=== PATIENT | female | born 1990 | race Caucasian/White ===

== ENCOUNTER 2020-03-09 12:44 | Inpatient (IN) | payer OTHER ==
--- NOTE | 2020-03-09 13:24 | BHS.RME ---
2019 N Coronavirus Screen - COVID-19 Screening Questions Dx of COVID-19 or had a positive test in the last 4 weeks?: No Contact with known/suspected COVID patient in last 14 days?: No Any of these symptoms or contact with someone who has?: None Traveled domestically/internationally in the last 14 days?: No Screen score: 0 Screen result: Further Evaluation Substance Use & Tx History - Substance Use History Other Opiates/Synthetics Substance amount: percocet 10-325 8 tabs Frequency of use: Less than 3 times per week Substance route: Oral Date of Last Use: 03/08/20 (started age 25) Xanax Substance amount: 2mg 3 tabs Frequency of use: Less than 3 times per week Substance route: Oral Date of Last Use: 03/08/20 (started age 26) Nicotine Substance amount: 2-3 ciggs Frequency of use: Less than 3 times per week Substance route: Smoking Date of Last Use: 03/09/20 (started age 25) - Last Treatment Date of last treatment: 03/08/20 overdosed on combination of percocet and xanax given narcan yester Treatment type: Medical Where was last treatment: ER Physical/Psych/Mental Status - Behavior General Behavior: Increased activity (restlessness, agitation) Eye Contact: Normal - Cooperativeness Cooperativeness: Cooperative - Thinking Thought Processes: Tight, Logical, Goal Directed - Physical Health Problems Is patient presently having any pain?: No Does patient presently have any injuries (include location): No Does patient currently have a fever: No Is patient : No COWS - Scale Resting Pulse: 0= [place] 80 or Below Sweatin= No chills or Flushing Restless Observation: 0= Sits Still Pupil Size: 0= Normal to Room Light Bone or Joint Aches: 0= None Runny Nose/ Eye Tearin= None GI Upset > 30mins: 0= None Tremor Observation: 0= None Yawning Observation: 0= None Anxiety or Irritability: 0= None Goose Flesh Skin: 0=Smooth Skin COWS Score: 0 CIWA Nausea/Vomitin-No Nausea/No Vomiting Muscle Tremors: None Anxiety: 0-No Anxiety, at Ease Agitation: 0-Normal Activity Paroxysmal Sweats: No Perspiration Orientation: 0-Oriented Tacttile Disturbances: 0-None Auditory Disturbances: 0-None Visual Disturbances: 0-None Headache: 0-None Present CIWA-Ar Total Score: 0
--- NOTE | 2020-03-09 17:03 | HP ---
COWS - Scale Resting Pulse: 1= [place] 81-100 Sweatin= No chills or Flushing Restless Observation: 0= Sits Still Pupil Size: 0= Normal to Room Light Bone or Joint Aches: 0= None Runny Nose/ Eye Tearin= None GI Upset > 30mins: 0= None Tremor Observation: 2= Slight Tremor Visible Yawning Observation: 1= 1-2x During Session Anxiety or Irritability: 0= None Goose Flesh Skin: 0=Smooth Skin COWS Score: 4 CIWA Score Nausea/Vomitin-No Nausea/No Vomiting Muscle Tremors: None Anxiety: 0-No Anxiety, at Ease Agitation: 0-Normal Activity Paroxysmal Sweats: No Perspiration Orientation: 0-Oriented Tacttile Disturbances: 0-None Auditory Disturbances: 0-None Visual Disturbances: 0-None Headache: 0-None Present CIWA-Ar Total Score: 0 - Admission Criteria OASAS Guidelines: Admission for Medically Managed Detox: Requires at least one of the followin. CIWA greater than 12 2. Seizures within the past 24 hours 3. Delirium tremens within the past 24 hours 4. Hallucinations within the past 24 hours 5. Acute intervention needed for co occurring medical disorder 6. Acute intervention needed for co occurring psychiatric disorder 7. Severe withdrawal that cannot be handled at a lower level of care (continued vomiting, continued diarrhea, abnormal vital signs) requiring intravenous medication and/or fluids 8. Admission ROS [facility] Allergies/Adverse Reactions: Allergies Allergy/AdvReac Type Severity Reaction Status Date / Time No Known Allergies Allergy Verified 03/09/20 13:39
--- NOTE | 2020-03-09 18:03 | HP ---
COWS - Scale Resting Pulse: 1= [place] 81-100 Sweatin= No chills or Flushing Restless Observation: 0= Sits Still Pupil Size: 0= Normal to Room Light Bone or Joint Aches: 0= None Runny Nose/ Eye Tearin= None GI Upset > 30mins: 0= None Tremor Observation: 0= None Yawning Observation: 0= None Anxiety or Irritability: 1=Feels Anxious/Irritable Goose Flesh Skin: 0=Smooth Skin COWS Score: 2 CIWA Score Nausea/Vomitin-No Nausea/No Vomiting Muscle Tremors: 2 Anxiety: 1-Mildly Anxious Agitation: 0-Normal Activity Paroxysmal Sweats: No Perspiration Orientation: 0-Oriented Tacttile Disturbances: 0-None Auditory Disturbances: 0-None Visual Disturbances: 0-None Headache: 0-None Present CIWA-Ar Total Score: 3 - Admission Criteria OASAS Guidelines: Admission for Medically Managed Detox: Requires at least one of the followin. CIWA greater than 12 2. Seizures within the past 24 hours 3. Delirium tremens within the past 24 hours 4. Hallucinations within the past 24 hours 5. Acute intervention needed for co occurring medical disorder 6. Acute intervention needed for co occurring psychiatric disorder 7. Severe withdrawal that cannot be handled at a lower level of care (continued vomiting, continued diarrhea, abnormal vital signs) requiring intravenous medication and/or fluids 8. Admission ROS [facility] Allergies/Adverse Reactions: Allergies Allergy/AdvReac Type Severity Reaction Status Date / Time No Known Allergies Allergy Verified 03/09/20 13:39 History of Present Illness: 29 y.o. female requesting detox from opioids and cannabis . opioids : since 2 yrs ago , tried from a friend , reports use 3 x/week 4 Percocets 10 mg each , latest use yesterday , denies symptoms if not taking . OD yesterday , was in the house , mother found her and was given Narcan by EMS , was taken to [facility] , left 7:30 am today . Was supposed to come yesterday , referred by outpt program . where she was sent to by CPS due to incident in November 2019 when BF mother found out about the use of Percocet. During COVID restriction pt reluctantly admits to using Percocet and xanax more frequently . cannabis : 1/2 dime almost daily , decreased since CPS . first age of use 17 cocaine : denies use , claims friend rolled the cannabis joint and thinks cocaine got into the cannabis . tobacco : 2 cigs /day w/ cannabis use , first age of use 15 . etoh - denies benzo - xanax since 3 yrs ago after post- depression , denies seizures , blackouts , 1 stick /day 2 mg w/ other illicits. Lives w/ mother . 4-yr old son w/ bio father in [facility]. PMHX : hypothyroidism has not seen prescriber , previously on levothyroxine 1 yr ago PSHX : denies Psych : post- depression, BPD , suicide attempt at age 13 w/ taking Advil due to family conflict LMP : Feb 13 2020 . due to recent OD and benzo use , pt will be admitted to detox for close vital signs monitoring and patient safety , to be re-evaluated in the am by medical staff. Exam Limitations: No Limitations - Review of Systems Constitutional: No Symptoms Reported EENT: reports: No Symptoms Reported Respiratory: reports: No Symptoms reported Cardiac: reports: No Symptoms Reported GI: reports: No Symptoms Reported : reports: No Symptoms Reported Musculoskeletal: reports: No Symptoms Reported Integumentary: reports: No Symptoms Reported Neuro: reports: No Symptoms reported Endocrine: reports: See HPI, Other (fatigue) Hematology: reports: No Symptoms Reported Psychiatric: reports: Orientated x3 Patient History - Smoking Cessation Smoking history: Current some day smoker Have you smoked in the past 12 months: Yes Aproximately how many cigarettes per day: 2 Hx Chewing Tobacco Use: No Initiated information on smoking cessation: Yes 'Breaking Loose' booklet given: 03/09/20 Admission Physical Exam S - Physical General Appearance: Yes: No Apparent Distress HEENTM: Yes: EOMI, Hearing grossly Normal, Normocephalic, Normal Voice Respiratory: Yes: Chest Non-Tender, Lungs Clear, Normal Breath Sounds, No Respiratory Distress, No Accessory Muscle Use Neck: Yes: No masses,lesions,Nodules, Trachea in good position Cardiology: Yes: Regular Rhythm, Regular Rate, S1, S2, Tachycardia Abdominal: Yes: Non Tender, Soft Musculoskeletal: Yes: Gait Steady Extremities: Yes: Normal Range of Motion, Non-Tender, Tremors Neurological: Yes: Fully Oriented, Alert, Motor Strength 5/5, Depressed Affect Integumentary: Yes: Warm - Diagnostic (1) Opioid use disorder Current Visit: Yes Status: Acute (2) Cannabis dependence Current Visit: Yes Status: Chronic (3) Benzodiazepine dependence, episodic Current Visit: Yes Status: Acute (4) Current nicotine use Current Visit: Yes Status: Acute (5) Opioid overdose Current Visit: Yes Status: Resolved Qualifiers: Injury intent: accidental or unintentional Qualified Code(s): T40.2X1S - Poisoning by other opioids, accidental (unintentional), sequela Comment: pt reports OD yesterday , given NARCAN by EMS, taken to [facility] Inpatient Rehab Admission - Rehab Decision to Admit Inpatient rehab admission?: No
[2020-03-09 18:34] VITALS: BMI 27.9
[2020-03-09] MEDS ORDERED: MAGNESIUM HYDROX 2400MG/30ML ORAL SUSPENSION 30 ML CUP PO PRN (19:15)
[2020-03-09] MEDS ORDERED: METHOCARBAMOL 500 MG TABLET PO PRN (19:15)
[2020-03-09] MEDS ORDERED: MAGNESIUM CITRATE 300 ML BOTTLE PO PRN (19:15)
[2020-03-09] MEDS ORDERED: MENTHOL/PHENOL 1 EACH UD MM PRN (19:15)
[2020-03-09] MEDS ORDERED: ONDANSETRON *ODT* 4 MG TABLET SL PRN (19:15)
[2020-03-09] MEDS ORDERED: ACETAMINOPHEN 325 MG TABLET (FP) PO PRN ×2 (19:15)
[2020-03-09] MEDS ORDERED: MELATONIN 5 MG TABLETS PO PRN (19:15)
[2020-03-09] MEDS ORDERED: hydrOXYzine PAMOATE 25 MG CAPSULE (FP) PO PRN (19:15)
[2020-03-09] MEDS ORDERED: MAG HYDROX/AL HYDROX/SIMETH 30 ML UNIT-DOSE CUP PO PRN (19:15)
[2020-03-09] MEDS ORDERED: IBUPROFEN 400 MG TABLET (FP) PO PRN (19:15)
[2020-03-09] MEDS ORDERED: BISMUTH SUBSALICYLATE 524 MG/30 ML UD PO PRN (19:15)
[2020-03-09] MEDS ORDERED: diazePAM 5 MG TABLET PO PRN (19:17)
[2020-03-09] MEDS ORDERED: TUBERCULIN PPD 5 TU/0.1ML VIAL ID ONE (19:48)
[2020-03-09] MEDS ORDERED: THIAMINE HCL 100 MG TABLET (FP) PO SCH (22:00)
[2020-03-09] MEDS: diazePAM 5 MG TABLET PO SCH (22:12)
[2020-03-10] MEDS: diazePAM 5 MG TABLET PO SCH ×2 (05:29→10:03)
[2020-03-10 09:20] VITALS: BP 106/66; PULSE 82; TEMP 98.4
--- NOTE | 2020-03-10 09:44 | DS ---
[facility] Detox Discharge Summary Admission Date: 03/09/20 Discharge Date: 03/10/20 - History Present History: Cannabis Dependence, Opioid Dependence, Sedative Dependence Additional Comments: alert,oriented x 3 ambulation on the unit no abdominal pain no edema of legs no respiratory problem no withdrawal symptom stable for discharge to [facility] rehab total time of discharge spending 30 minutes - Physical Exam Results Vital Signs: Vital Signs Temperature 98.4 F 03/10/20 08:35 Pulse Rate 82 03/10/20 08:35 Respiratory Rate 18 03/10/20 08:35 Blood Pressure 106/66 03/10/20 08:35 O2 Sat by Pulse Oximetry (%) 99 03/10/20 06:16 Pertinent Admission Physical Exam Findings: Vital Signs Temperature 98.4 F 03/10/20 08:35 Pulse Rate 82 03/10/20 08:35 Respiratory Rate 18 03/10/20 08:35 Blood Pressure 106/66 03/10/20 08:35 O2 Sat by Pulse Oximetry (%) 99 03/10/20 06:16 Laboratory Last Values SARS-CoV-2 (PCR) Negative (Negative) 03/09/20 15:45 - Treatment Hospital Course: Discharged Condition Good, Rehab Referral Accepted Patient has Accepted a Rehab Referral to: [facility] - Medication Discharge Medications: Ambulatory Orders NK [No Known Home Medication] 03/09/20 - Diagnosis (1) Opioid use disorder Current Visit: Yes Status: Acute (2) Benzodiazepine dependence, episodic Current Visit: Yes Status: Acute (3) Current nicotine use Current Visit: Yes Status: Acute (4) Cannabis dependence Current Visit: Yes Status: Chronic (5) Opioid overdose Current Visit: Yes Status: Resolved Qualifiers: Injury intent: accidental or unintentional Qualified Code(s): T40.2X1S - Poisoning by other opioids, accidental (unintentional), sequela - AMA Did Patient Leave Against Medical Advice: No
--- NOTE | 2020-03-10 09:44 | PN ---
[facility] CIWA - CIWA Score Nausea/Vomitin-No Nausea/No Vomiting Muscle Tremors: None Anxiety: 1-Mildly Anxious Agitation: 0-Normal Activity Paroxysmal Sweats: No Perspiration Orientation: 0-Oriented Tacttile Disturbances: 0-None Auditory Disturbances: 0-None Visual Disturbances: 0-None Headache: 0-None Present CIWA-Ar Total Score: 1 [facility] COWS - Scale Resting Pulse: 1= [place] 81-100 Sweatin= No chills or Flushing Restless Observation: 0= Sits Still Pupil Size: 0= Normal to Room Light Bone or Joint Aches: 0= None Runny Nose/ Eye Tearin= None GI Upset > 30mins: 0= None Tremor Observation of Outstretched Hands: 0= None Yawning Observation: 0= None Anxiety or Irritability: 1=Feels Anxious/Irritable Goose Flesh Skin: 0=Smooth Skin COWS Score: 2 [facility] Progress Note (SOAP) Subjective: alert,oriented x 3,ambulation on the unit,no complaint Objective: 03/10/20 09:51 Vital Signs Temperature 98.4 F 03/10/20 08:35 Pulse Rate 82 03/10/20 08:35 Respiratory Rate 18 03/10/20 08:35 Blood Pressure 106/66 03/10/20 08:35 O2 Sat by Pulse Oximetry (%) 99 03/10/20 06:16 Assessment: 03/10/20 09:51 no withdrawal symptom Plan: patient is stable to be discharged to [facility]
[2020-03-10] MEDS ORDERED: PRENATAL VITAMINS W/ FOLIC ACID TABLET (FP) PO SCH (10:00)
[2020-03-10 10:27] LABS: HEMATOCRIT 36.7 % (32.4-45.2); HEMOGLOBIN 11.9 GM/dL (10.7-15.3); MCH 27.6 pg (25.7-33.7); MCHC 32.5 g/dl (32.0-36.0); MEAN CELL VOLUME 84.8 fl (80-96); MEAN PLT VOLUME 9.2 fl (7.5-11.1); PLATELET COUNT 233 K/MM3 (134-434); RBC 4.33 M/mm3 (3.60-5.2); RDW 12.6 % (11.6-15.6); WHITE BLOOD COUNT 5.5 K/mm3 (4.0-10.0)
[2020-03-10 10:30] LABS: POTASSIUM 3.6 mmol/L (3.5-5.1)
[2020-03-10 10:37] LABS: ALBUMIN 3.4 g/dl (3.4-5.0); BLOOD UREA NITROGEN 10.3 mg/dL (7-18); CALCIUM 9.2 mg/dL (8.5-10.1)
[2020-03-10 10:39] LABS: BILIRUBIN,TOTAL 0.4 mg/dL (0.2-1); TOT PROT 6.5 g/dl (6.4-8.2)
[2020-03-10 10:41] LABS: CREATININE 0.7 mg/dL (0.55-1.3)
[2020-03-10] MEDS ORDERED: PNEUMOCOCCAL 23 VACCINE 0.5 ML VIAL IM ONE (12:00)
[2020-03-10] MEDS ORDERED: PNEUMOC 13-VAL CONJ-DIP CRM/PF 0.5 ML DISP.SYRIN IM ONE (12:00)
--- NOTE | 2020-03-10 12:24 | PN ---
S Progress Note Note: Laboratory Last Values WBC 5.5 K/mm3 (4.0-10.0) 03/10/20 07:30 RBC 4.33 M/mm3 (3.60-5.2) 03/10/20 07:30 Hgb 11.9 GM/dL (10.7-15.3) 03/10/20 07:30 Hct 36.7 % (32.4-45.2) 03/10/20 07:30 MCV 84.8 fl (80-96) 03/10/20 07:30 MCH 27.6 pg (25.7-33.7) 03/10/20 07:30 MCHC 32.5 g/dl (32.0-36.0) 03/10/20 07:30 RDW 12.6 % (11.6-15.6) 03/10/20 07:30 Plt Count 233 K/MM3 (134-434) 03/10/20 07:30 MPV 9.2 fl (7.5-11.1) 03/10/20 07:30 Sodium 137 mmol/L (136-145) 03/10/20 07:30 Potassium 3.6 mmol/L (3.5-5.1) 03/10/20 07:30 Chloride 103 mmol/L (98-107) 03/10/20 07:30 Carbon Dioxide 30 mmol/L (21-32) 03/10/20 07:30 Anion Gap 4 MMOL/L (8-16) L 03/10/20 07:30 BUN 10.3 mg/dL (7-18) 03/10/20 07:30 Creatinine 0.7 mg/dL (0.55-1.3) 03/10/20 07:30 Est GFR (CKD-EPI)AfAm 136.66 03/10/20 07:30 Est GFR (CKD-EPI)NonAf 117.91 03/10/20 07:30 Random Glucose 83 mg/dL (74-106) 03/10/20 07:30 Calcium 9.2 mg/dL (8.5-10.1) 03/10/20 07:30 Total Bilirubin 0.4 mg/dL (0.2-1) 03/10/20 07:30 AST 10 U/L (15-37) L 03/10/20 07:30 ALT 22 U/L (13-61) 03/10/20 07:30 Alkaline Phosphatase 90 U/L (45-117) 03/10/20 07:30 Total Protein 6.5 g/dl (6.4-8.2) 03/10/20 07:30 Albumin 3.4 g/dl (3.4-5.0) 03/10/20 07:30 POC Urine HCG, Qual Negative 03/09/20 18:34 Syphilis Serology Non-reactive (NONREACTIVE) 03/10/20 07:30 HIV Ag/Ab Combo Qual Negative (NEGATIVE) 03/10/20 07:30 SARS-CoV-2 (PCR) Negative (Negative) 03/09/20 15:45
== END 2020-03-10 12:21 | disposition other institution (70) | DRG 773 ==
LOC: YASAS 12:44 → Y3N 18:53
PROVIDERS: ADMIT Allergy & Immunology; ATTEND Allergy & Immunology
PROC: HZ2ZZZZ Detoxification Services for Substance Abuse Treatment (ICD-10-PCS; principal; 2020-03-09)
DX: F11.23 Opioid dependence with withdrawal (principal); F13.20 Sedative, hypnotic or anxiolytic dependence, uncomplicated; F12.20 Cannabis dependence, uncomplicated; F17.210 Nicotine dependence, cigarettes, uncomplicated; F31.9 Bipolar disorder, unspecified; E03.9 Hypothyroidism, unspecified; T40.1X1D Poisoning by heroin, accidental (unintentional), subsequent encounter; Z86.59 Personal history of other mental and behavioral disorders; Z91.5 Personal history of self-harm
CPT/HCPCS: 36415; 80053; 81025; 85027; 86780; 87389; 90732; C9803; G0009; U0003